=== PATIENT | male | born 1960 | race Caucasian/White ===

== ENCOUNTER 2021-07-24 12:51 | Emergency (ER) | payer OTHER ==
[2021-07-24 12:55] VITALS: BP 130/72; PULSE 90; TEMP 99.3; BMI 23.6
== END 2021-07-24 15:53 | disposition home or self-care (01) ==
LOC: FER 12:51
DX: S52.502A Unspecified fracture of the lower end of left radius, initial encounter for closed fracture (principal); W01.0XXA Fall on same level from slipping, tripping and stumbling without subsequent striking against object, initial encounter; Y93.73 Activity, racquet and hand sports; Y92.312 Tennis court as the place of occurrence of the external cause
CPT/HCPCS: 73110-TC-LT-FY; 99283-25